=== PATIENT | female | born 1935 | race Asian ===

== ENCOUNTER → 2016-07-28 | Outpatient (CLI) | payer MEDICARE, OTHER ==
[~2016-07-28] MED LIST: AMLO-512 PO; ASPI-1093 PO; ATEN50TA PO; ATOR20TA86 PO; CETI-260 PO; GLYB1TAB2 PO; MULT-71 PO; RALO60 PO; SITA50 PO; TELM1TAB6 PO
== END | disposition home or self-care (01) ==
LOC: RADPV 13:20
PROVIDERS: ATTEND Internal Medicine
DX: I70.0 Atherosclerosis of aorta (principal)
CPT/HCPCS: 71020

== ENCOUNTER 2016-08-01 04:21 | Inpatient (IN) | payer MEDICARE, OTHER ==
[~2016-08-01] VITALS: Ht 162.6 cm; Wt 75.7 kg
[2016-08-01 04:52] LABS: GLUCOSE,POINT OF CARE 195 MG/DL (70-110)
[2016-08-01] MEDS ORDERED: SEPTRA DS PO (05:05)
[2016-08-01] MEDS ORDERED: ACARBOSE PO (05:05)
[2016-08-01] MEDS ORDERED: BENZ-26 PO (05:05)
[2016-08-01 05:49] LABS: BASOPHILS # (AUTO) 0.07 K/uL (0.00-0.20); BASOPHILS % (AUTO) 0.5 % (0.0-2.0); EOSINOPHILS # (AUTO) 0.05 K/uL (0.00-0.70); HEMATOCRIT 32.8 % (36-46); LYMPHOCYTES # (AUTO) 1.7 K/uL (1.0-4.8); LYMPHOCYTES % (AUTO) 12.8 % (22.0-44.0); MEAN CORPUSCULAR HEMOGLOBIN 28.7 pg (26.0-34.0); MEAN CORPUSCULAR HGB CONC 33.5 G/dL (31.0-37.0); MEAN CORPUSCULAR VOLUME 86 fL (80-100); MONOCYTES # (AUTO) 0.9 K/uL (0.1-1.0); MONOCYTES % (AUTO) 6.6 % (2.0-9.0); NEUTROPHILS # (AUTO) 10.6 K/uL (1.8-7.7); NEUTROPHILS % (AUTO) 79.7 % (40.0-70.0); PLATELET COUNT (AUTO) 272 K/uL (150-450); RED BLOOD CELL COUNT(AUTO) 3.81 MIL/uL (4.00-5.20); RED CELL DISTRIBUTION WIDTH 14.1 % (11.5-14.5); WHITE BLOOD COUNT (AUTO) 13.3 K/uL (4.5-11.0)
[2016-08-01 06:16] LABS: ALBUMIN 3.3 g/dL (3.4-5.0); BILIRUBIN,TOTAL 0.3 mg/dL (0.1-1.0); CREATININE 1.72 mg/dL (0.60-1.30); POTASSIUM 4.8 mmol/L (3.5-5.1); TOTAL PROTEIN, SERUM 7.8 g/dL (6.4-8.2)
[2016-08-01] MEDS ORDERED: SODIUM CHLORIDE 0.9% 1,000 ML IV ONE ×2 (06:45→10:45)
[2016-08-01 07:53] LABS: GLUCOSE, URINE (UA) NEGATIVE (NEGATIVE); KETONES,URINE NEGATIVE (NEGATIVE); LEUKOCYTE ESTERASE ,URINE TRACE (NEGATIVE); OCCULT BLOOD,URINE TRACE (NEGATIVE); PH,URINE 5.5 (5.0-8.0); PROTEIN,URINE NEGATIVE (NEGATIVE)
[2016-08-01 08:00] LABS: ADD UA MICROSCOPIC YES; APPEARANCE,URINE HAZY (CLEAR); RBC,URINE 0-2 /HPF (0-2); WBC,URINE 0-2 /HPF (0-5)
[2016-08-01] MEDS ORDERED: 0.9% SODIUM CHLORIDE 10 ML SYRINGE IVP PRN (10:00)
[2016-08-01] MEDS ORDERED: ACETAMINOPHEN 325 MG TABLET PO PRN ×2 (10:00→10:45)
[2016-08-01] MEDS ORDERED: ONDANSETRON HCL 4 MG/2 ML VIAL IVP PRN ×2 (10:00→10:45)
[2016-08-01] MEDS ORDERED: MAGNESIUM HYDROXIDE SUSPENSION 30 ML UDCUP PO PRN (10:45)
[2016-08-01] MEDS ORDERED: BISACODYL 10 MG RECTAL RECTAL SUPPOSITORY PR PRN (10:45)
[2016-08-01] MEDS ORDERED: DEXTROSE 50%-WATER 25 GM/50 ML SYRINGE IVP PRN (10:45)
[2016-08-01] MEDS ORDERED: MORPHINE SULFATE 2 MG/ML SYRINGE IVP PRN (10:45)
[2016-08-01] MEDS ORDERED: ZOLPIDEM TARTRATE 5 MG TABLET PO PRN (10:45)
[2016-08-01] MEDS ORDERED: HYDROCODONE/ACETAMINOPHEN 5-325 MG TABLET PO PRN (10:45)
[2016-08-01] MEDS ORDERED: ALBUTEROL SULFATE HFA 90 MCG/PUFF 8 GM INHALER IH PRN (11:00)
[2016-08-01 15:03] VITALS: BP 150/69
[2016-08-01] MEDS ORDERED: HEPARIN SODIUM,PORCINE 5,000 UNITS/ML VIAL SQ SCH (16:00)
[2016-08-01] MEDS: BENZONATATE 100 MG CAPSULE PO SCH ×2 (16:02→20:11)
[2016-08-01 20:07] VITALS: BP 134/63
[2016-08-01] MEDS: DOCUSATE SODIUM 100 MG CAPSULE PO SCH (20:11)
[2016-08-01] MEDS: HEPARIN SODIUM,PORCINE 5,000 UNITS/ML VIAL SQ SCH (20:12)
[2016-08-01] MEDS: ATORVASTATIN CALCIUM 20 MG TABLET PO SCH (20:12)
[2016-08-01 22:58] VITALS: BP 144/57
[2016-08-02 04:15] VITALS: BP 151/67
[2016-08-02 06:56] LABS: CALCIUM, TOTAL 8.2 mg/dL (8.8-10.5); CREATININE 1.25 mg/dL (0.60-1.30); POTASSIUM 4.9 mmol/L (3.5-5.1)
[2016-08-02 07:07] VITALS: BP 150/67
[2016-08-02] MEDS: HEPARIN SODIUM,PORCINE 5,000 UNITS/ML VIAL SQ SCH ×2 (08:32→20:16)
[2016-08-02] MEDS: DOCUSATE SODIUM 100 MG CAPSULE PO SCH ×2 (08:32→20:17)
[2016-08-02] MEDS: PANTOPRAZOLE SODIUM 40 MG DR TABLET PO SCH (08:32)
[2016-08-02] MEDS: BENZONATATE 100 MG CAPSULE PO SCH ×3 (08:32→20:16)
[2016-08-02] MEDS: ASPIRIN 81 MG EC TABLET PO SCH (08:33)
[2016-08-02] MEDS: RALOXIFENE HCL 60 MG TABLET PO SCH (08:33)
[2016-08-02] MEDS ORDERED: SULF1TAB42 PO (11:49)
[2016-08-02] MEDS ORDERED: ACAR50TA11 PO (11:49)
[2016-08-02 11:53] VITALS: BP 148/87
[2016-08-02] MEDS: SODIUM CHLORIDE 0.45% 1,000 ML IV SCH (11:56)
[2016-08-02] MEDS ORDERED: GADOBUTROL 1 MMOL/ML 10 ML VIAL IVP ONE (14:41)
[2016-08-02 16:45] VITALS: BP 151/72
[2016-08-02 18:37] LABS: GLUCOSE,POINT OF CARE 105 MG/DL (70-110)
[2016-08-02 19:38] VITALS: BP 152/77
[2016-08-02] MEDS: ATORVASTATIN CALCIUM 20 MG TABLET PO SCH (20:16)
[2016-08-02 21:07] LABS: MAGNESIUM 2.5 mg/dL (1.80-2.40); THYROID STIMULATING HORMONE 1.79 uIU/mL (0.36-3.74)
[2016-08-02 23:53] VITALS: BP 149/74
[2016-08-03] MEDS: SODIUM CHLORIDE 0.45% 1,000 ML IV SCH ×2 (01:11→14:47)
[2016-08-03 04:55] VITALS: BP 157/74
[2016-08-03 06:57] LABS: BASOPHILS % (AUTO) 1.3 % (0.0-2.0); EOSINOPHILS % (AUTO) 0.5 % (1.0-6.0); HEMATOCRIT 33.5 % (36-46); HEMOGLOBIN 10.8 g/dL (12.0-16.0); LYMPHOCYTES # (AUTO) 1.3 K/uL (1.0-4.8); LYMPHOCYTES % (AUTO) 15.7 % (22.0-44.0); MEAN CORPUSCULAR HGB CONC 32.3 G/dL (31.0-37.0); MEAN CORPUSCULAR VOLUME 87 fL (80-100); MONOCYTES # (AUTO) 0.5 K/uL (0.1-1.0); MONOCYTES % (AUTO) 6.2 % (2.0-9.0); NEUTROPHILS # (AUTO) 6.5 K/uL (1.8-7.7); NEUTROPHILS % (AUTO) 76.3 % (40.0-70.0); PLATELET COUNT (AUTO) 270 K/uL (150-450); RED BLOOD CELL COUNT(AUTO) 3.87 MIL/uL (4.00-5.20); RED CELL DISTRIBUTION WIDTH 14.3 % (11.5-14.5); WHITE BLOOD COUNT (AUTO) 8.5 K/uL (4.5-11.0)
[2016-08-03 07:30] VITALS: BP 124/71
[2016-08-03 07:31] LABS: GLUCOSE,POINT OF CARE 79 MG/DL (70-110)
[2016-08-03 07:41] LABS: AMYLASE 286 U/L (25-115); ANION GAP 12 mmol/L (8-16); CALCIUM, TOTAL 8.3 mg/dL (8.8-10.5); CARBON DIOXIDE 21 mmol/L (22-29); CHLORIDE 101 mmol/L (98-107); CREATININE 1.28 mg/dL (0.60-1.30); GLOMERULAR FILTR. RATE CALC 40 mL/min (>60); POTASSIUM 5.4 mmol/L (3.5-5.1); SODIUM SERUM 134 mmol/L (136-145); UREA NITROGEN, BLOOD 19 mg/dL (7-18)
[2016-08-03 08:33] LABS: PROCALCITONIN (PCT) < 0.05 ng/mL (<0.50)
[2016-08-03] MEDS: RALOXIFENE HCL 60 MG TABLET PO SCH (09:00)
[2016-08-03] MEDS: DOCUSATE SODIUM 100 MG CAPSULE PO SCH ×2 (10:02→20:22)
[2016-08-03] MEDS: PANTOPRAZOLE SODIUM 40 MG DR TABLET PO SCH (10:02)
[2016-08-03] MEDS: ASPIRIN 81 MG EC TABLET PO SCH (10:02)
[2016-08-03] MEDS: BENZONATATE 100 MG CAPSULE PO SCH ×3 (10:02→20:17)
[2016-08-03] MEDS: HEPARIN SODIUM,PORCINE 5,000 UNITS/ML VIAL SQ SCH ×2 (10:03→20:17)
[2016-08-03 11:00] VITALS: BP 158/68
[2016-08-03] MEDS ORDERED: PROMETHAZINE HCL 6.25 MG/5 ML SYRUP ORAL.SYG PO PRN (12:45)
[2016-08-03] MEDS ORDERED: SODIUM POLYSTYRENE SULFONATE 15 GM/60 ML SUSPENSION BOTTLE PO ONE (13:00)
[2016-08-03 15:37] VITALS: BP 133/61
[2016-08-03] MEDS: NITROGLYCERIN 2% (1 GM=INCH) PACKET TP SCH (17:55)
[2016-08-03 19:21] LABS: GLUCOSE,POINT OF CARE 86 MG/DL (70-110)
[2016-08-03 19:25] VITALS: BP 155/72
[2016-08-03] MEDS: ATORVASTATIN CALCIUM 20 MG TABLET PO SCH (20:17)
[2016-08-03 23:43] VITALS: BP 158/69
[2016-08-04] MEDS: NITROGLYCERIN 2% (1 GM=INCH) PACKET TP SCH ×3 (00:16→16:17)
[2016-08-04] MEDS: SODIUM CHLORIDE 0.45% 1,000 ML IV SCH ×2 (03:40→17:26)
[2016-08-04 04:48] VITALS: BP 136/63
[2016-08-04 06:50] LABS: BASOPHILS % (AUTO) 1.5 % (0.0-2.0); EOSINOPHILS # (AUTO) 0.07 K/uL (0.00-0.70); EOSINOPHILS % (AUTO) 1.09 % (1.0-6.0); HEMATOCRIT 29.5 % (36-46); HEMOGLOBIN 9.7 g/dL (12.0-16.0); LYMPHOCYTES # (AUTO) 1.6 K/uL (1.0-4.8); LYMPHOCYTES % (AUTO) 24.5 % (22.0-44.0); MEAN CORPUSCULAR HEMOGLOBIN 28.4 pg (26.0-34.0); MEAN CORPUSCULAR VOLUME 86 fL (80-100); MONOCYTES # (AUTO) 0.6 K/uL (0.1-1.0); MONOCYTES % (AUTO) 8.5 % (2.0-9.0); NEUTROPHILS # (AUTO) 4.3 K/uL (1.8-7.7); NEUTROPHILS % (AUTO) 64.4 % (40.0-70.0); PLATELET COUNT (AUTO) 260 K/uL (150-450); RED BLOOD CELL COUNT(AUTO) 3.43 MIL/uL (4.00-5.20); RED CELL DISTRIBUTION WIDTH 13.8 % (11.5-14.5); WHITE BLOOD COUNT (AUTO) 6.7 K/uL (4.5-11.0)
[2016-08-04 07:12] VITALS: BP 149/85
[2016-08-04 07:12] LABS: ALBUMIN 2.9 g/dL (3.4-5.0); BILIRUBIN,TOTAL 0.3 mg/dL (0.1-1.0); CALCIUM, TOTAL 7.9 mg/dL (8.8-10.5); CREATININE 1.29 mg/dL (0.60-1.30); MAGNESIUM 2.1 mg/dL (1.80-2.40); POTASSIUM 4.3 mmol/L (3.5-5.1); TOTAL PROTEIN, SERUM 6.8 g/dL (6.4-8.2)
[2016-08-04] MEDS: BENZONATATE 100 MG CAPSULE PO SCH ×3 (08:15→20:50)
[2016-08-04] MEDS: RALOXIFENE HCL 60 MG TABLET PO SCH (08:15)
[2016-08-04] MEDS: PANTOPRAZOLE SODIUM 40 MG DR TABLET PO SCH (08:15)
[2016-08-04] MEDS: ASPIRIN 81 MG EC TABLET PO SCH (08:15)
[2016-08-04] MEDS: DOCUSATE SODIUM 100 MG CAPSULE PO SCH ×2 (08:15→20:50)
[2016-08-04] MEDS: HEPARIN SODIUM,PORCINE 5,000 UNITS/ML VIAL SQ SCH ×2 (08:19→20:54)
[2016-08-04 09:57] LABS: GLUCOSE,POINT OF CARE 124 MG/DL (70-110)
[2016-08-04] MEDS: AmLODIPine BESYLATE 5 MG TABLET PO SCH (10:25)
[2016-08-04 10:56] VITALS: BP 155/63
[2016-08-04 15:11] VITALS: BP 156/81
[2016-08-04] MEDS: INSULIN ASPART 100 UNITS/ML SQ PRN ×2 (18:53→21:03)
[2016-08-04 19:29] VITALS: BP 154/78
[2016-08-04] MEDS: ATORVASTATIN CALCIUM 20 MG TABLET PO SCH (20:50)
[2016-08-04 23:34] VITALS: BP 148/83
[2016-08-05] MEDS: NITROGLYCERIN 2% (1 GM=INCH) PACKET TP SCH ×2 (00:35→09:12)
[2016-08-05 03:51] VITALS: BP 156/76
[2016-08-05] MEDS: SODIUM CHLORIDE 0.45% 1,000 ML IV SCH (06:01)
[2016-08-05 06:21] LABS: ALBUMIN 2.8 g/dL (3.4-5.0); BILIRUBIN,TOTAL 0.2 mg/dL (0.1-1.0); CREATININE 1.26 mg/dL (0.60-1.30); MAGNESIUM 1.9 mg/dL (1.80-2.40); POTASSIUM 4.2 mmol/L (3.5-5.1); TOTAL PROTEIN, SERUM 6.6 g/dL (6.4-8.2)
[2016-08-05 06:56] LABS: BASOPHILS # (AUTO) 0.07 K/uL (0.00-0.20); BASOPHILS % (AUTO) 0.9 % (0.0-2.0); HEMATOCRIT 29.6 % (36-46); HEMOGLOBIN 9.9 g/dL (12.0-16.0); LYMPHOCYTES # (AUTO) 1.4 K/uL (1.0-4.8); LYMPHOCYTES % (AUTO) 19.1 % (22.0-44.0); MEAN CORPUSCULAR HEMOGLOBIN 28.6 pg (26.0-34.0); MEAN CORPUSCULAR HGB CONC 33.4 G/dL (31.0-37.0); MEAN CORPUSCULAR VOLUME 86 fL (80-100); MONOCYTES # (AUTO) 0.6 K/uL (0.1-1.0); MONOCYTES % (AUTO) 8.3 % (2.0-9.0); NEUTROPHILS # (AUTO) 5.1 K/uL (1.8-7.7); NEUTROPHILS % (AUTO) 70.3 % (40.0-70.0); PLATELET COUNT (AUTO) 229 K/uL (150-450); RED BLOOD CELL COUNT(AUTO) 3.46 MIL/uL (4.00-5.20); RED CELL DISTRIBUTION WIDTH 14.3 % (11.5-14.5); WHITE BLOOD COUNT (AUTO) 7.2 K/uL (4.5-11.0)
[2016-08-05 07:03] VITALS: BP 156/78
[2016-08-05] MEDS ORDERED: TELM40 PO (08:44)
[2016-08-05] MEDS ORDERED: METF500T4 PO (08:46)
[2016-08-05] MEDS: DOCUSATE SODIUM 100 MG CAPSULE PO SCH (09:12)
[2016-08-05] MEDS: PANTOPRAZOLE SODIUM 40 MG DR TABLET PO SCH (09:13)
[2016-08-05] MEDS: AmLODIPine BESYLATE 5 MG TABLET PO SCH (09:13)
[2016-08-05] MEDS: RALOXIFENE HCL 60 MG TABLET PO SCH (09:13)
[2016-08-05] MEDS: ASPIRIN 81 MG EC TABLET PO SCH (09:13)
[2016-08-05] MEDS: BENZONATATE 100 MG CAPSULE PO SCH (09:14)
[2016-08-05] MEDS: HEPARIN SODIUM,PORCINE 5,000 UNITS/ML VIAL SQ SCH (09:15)
[2016-08-05] MEDS ORDERED: AMLO-511 PO (09:28)
== END 2016-08-05 10:50 | disposition home or self-care (01) | DRG 439 ==
LOC: EMS 04:25 → 5N 13:31
PROVIDERS: ADMIT Internal Medicine; ATTEND Internal Medicine
DX: K85.90 Acute pancreatitis without necrosis or infection, unspecified (principal); K86.2 Cyst of pancreas; E87.1 Hypo-osmolality and hyponatremia; E11.9 Type 2 diabetes mellitus without complications; J45.909 Unspecified asthma, uncomplicated; E87.5 Hyperkalemia; I44.1 Atrioventricular block, second degree; E78.5 Hyperlipidemia, unspecified; M19.90 Unspecified osteoarthritis, unspecified site; E11.22 Type 2 diabetes mellitus with diabetic chronic kidney disease; D64.9 Anemia, unspecified; E86.0 Dehydration; I50.9 Heart failure, unspecified; N18.3 Chronic kidney disease, stage 3 (moderate); N28.1 Cyst of kidney, acquired; K76.0 Fatty (change of) liver, not elsewhere classified; I13.10 Hypertensive heart and chronic kidney disease without heart failure, with stage 1 through stage 4 chronic kidney disease, or unspecified chronic kidney disease; Z88.1 Allergy status to other antibiotic agents; Z79.82 Long term (current) use of aspirin; Z82.49 Family history of ischemic heart disease and other diseases of the circulatory system; Z79.899 Other long term (current) drug therapy; Z83.3 Family history of diabetes mellitus; Z79.4 Long term (current) use of insulin
CPT/HCPCS: 74183; 76700; 76770; 82105; 82378; 82962; 83540; 83735; 84145; 84443; 86301; 93005; 93306; 96360; 96361; 99285; A9585; J1644; J7030

== ENCOUNTER → 2016-08-23 | Outpatient (CLI) | payer MEDICARE, OTHER ==
[~2016-08-23] MED LIST changes: +ACAR50TA11 PO; +AMLO-511 PO; -AMLO-512 PO; -ATEN50TA PO; +BENZ-26 PO; -GLYB1TAB2 PO; +METF500T4 PO; -SITA50 PO; -TELM1TAB6 PO; +TELM40 PO
== END | disposition home or self-care (01) ==
LOC: RADPV 14:54
PROVIDERS: ATTEND Internal Medicine
DX: M16.0 Bilateral primary osteoarthritis of hip (principal)
CPT/HCPCS: 72170

== ENCOUNTER → 2017-11-14 | Outpatient (CLI) | payer MEDICARE, OTHER ==
[~2017-11-14] MED LIST changes: -ASPI-1093 PO; +ASPI-1182 PO; -BENZ-26 PO; +BENZ-51 PO; -CETI-260 PO; +CETI-290 PO; -METF500T4 PO; +METF500T6 PO; -MULT-71 PO; +MULT1TAB70 PO
[2017-11-14 10:02] LABS: HEMATOCRIT 32.4 % (36-46); HEMOGLOBIN 10.7 g/dL (12.0-16.0)
[2017-11-14 10:12] LABS: HEMOGLOBIN A1C 6.5 % (4.5-6.2)
[2017-11-14 10:27] LABS: CALCIUM, TOTAL 8.3 mg/dL (8.8-10.5); CREATININE 1.46 mg/dL (0.60-1.30); PHOSPHORUS 3.3 mg/dL (2.5-4.9); POTASSIUM 4.3 mmol/L (3.5-5.1)
[2017-11-14 12:28] LABS: CREATININE,URINE 36.8 mg/dL (30.0-125.0)
[2017-11-14 12:30] LABS: CREATININE,SERUM FOR CRCL 1.46 mg/dL (0.60-1.30)
[2017-11-14 12:34] LABS: APPEARANCE,URINE CLOUDY (CLEAR); BILIRUBIN,URINE NEGATIVE (NEGATIVE); GLUCOSE, URINE (UA) NEGATIVE (NEGATIVE); KETONES,URINE NEGATIVE (NEGATIVE); LEUKOCYTE ESTERASE ,URINE MODERATE (NEGATIVE); NITRATE,URINE NEGATIVE (NEGATIVE); OCCULT BLOOD,URINE SMALL (NEGATIVE); PROTEIN,URINE TRACE (NEGATIVE); UROBILINOGEN,URINE 0.2 mg/dL (<=1.0)
[2017-11-14 12:34] LABS: FOLATE SERUM 16.4 ng/mL (5.4-)
[2017-11-14 13:50] LABS: BACTERIA,URINE Few /HPF (None Seen); RBC,URINE 0-2 /HPF (0-2)
[2017-11-14 13:51] LABS: SQUAMOUS EPITHELIAL CELL,UR Many /LPF (None Seen)
== END | disposition home or self-care (01) ==
LOC: MSR 07:56
PROVIDERS: ATTEND Internal Medicine Nephrology
DX: I12.9 Hypertensive chronic kidney disease with stage 1 through stage 4 chronic kidney disease, or unspecified chronic kidney disease (principal); N18.3 Chronic kidney disease, stage 3 (moderate); E11.9 Type 2 diabetes mellitus without complications; E78.5 Hyperlipidemia, unspecified; R79.89 Other specified abnormal findings of blood chemistry; N28.1 Cyst of kidney, acquired
CPT/HCPCS: 76770; 81050; 82575; 82607; 82728; 82746; 83036; 83540; 83550; 83970; 84100; 84156; 84300; 84466; 85014; 85018

== ENCOUNTER → 2017-11-21 | Outpatient (CLI) | payer MEDICARE, OTHER | END | disposition home or self-care (01) | LOC: RADPV 15:22 | PROVIDERS: ATTEND Internal Medicine | DX: M19.042 Primary osteoarthritis, left hand (principal); I10 Essential (primary) hypertension; E11.9 Type 2 diabetes mellitus without complications ==